=== PATIENT | male | born 1975 | race Caucasian/White ===

== ENCOUNTER → 2020-08-12 11:11 | Outpatient (BNVA) | payer SELFPAY | PROVIDERS: Family Provider Nurse Practitioner Family; PCP Nurse Practitioner Family; Visit Provider Registered Nurse | DX: I10 Essential (primary) hypertension (principal) | CPT/HCPCS: 80053; 80061; 85025 ==

== ENCOUNTER → 2021-05-18 10:23 | Outpatient (BNVA) | payer SELFPAY | PROVIDERS: Family Provider Nurse Practitioner Family; PCP Nurse Practitioner Family; Visit Provider Registered Nurse | DX: I10 Essential (primary) hypertension (principal); R31.9 Hematuria, unspecified | CPT/HCPCS: 80053; 80061; 81000; 85025; 87086; 88112; G0103 ==